=== PATIENT | female | born 1965 | race Caucasian/White ===

== ENCOUNTER 2021-03-23 11:55 | Emergency (ER) | payer OTHER, SELFPAY ==
[2021-03-23 11:58] VITALS: BP 163/92; PULSE 102; RESP 18; TEMP 36.5; O2SAT 97
--- NOTE | 2021-03-23 12:00 | DI.RAD_ITS ---
Exam(s) XR FOOT LT COMPLETE EXAM: XR FOOT LT COMPLETE CLINICAL HISTORY: left lateral foot pain, trauma. TECHNIQUE: 2D digital imaging was performed. COMPARISON: No exams were available for comparison FINDINGS: BONES: oblique fracture through the distal 5th metatarsal with mild displacement. Small comminuted fragment. Sesamoids adjacent to the head of the 5th metatarsal. No bony destructive lesion is seen. JOINTS: No dislocation present. SOFT TISSUE: Swelling adjacent to the 5th metatarsal and 5th toe. IMPRESSION: Fifth metatarsal fracture. DATA REPOSITORY: RADIATION DOSE DELIVERED:
--- NOTE | 2021-03-23 12:36 | DI.RAD_ITS ---
Exam(s) XR ANKLE LT COMPLETE EXAM: XR ANKLE LT COMPLETE CLINICAL HISTORY: left lateral ankle pain TECHNIQUE: 2D digital imaging was performed. COMPARISON: No exams were available for comparison FINDINGS: BONES: No acute fracture is present. No bony destructive lesion is seen. Heel spurs. Smoothly margin ated bony density beneath the lateral malleolus likely related to old trauma. JOINTS:The ankle mortise is normally aligned. SOFT TISSUE: Swelling beneath malleoli. IMPRESSION: Unremarkable radiographs of the left ankle. DATA REPOSITORY: RADIATION DOSE DELIVERED:
[2021-03-23 12:56] VITALS: BP 168/89; PULSE 85; RESP 14; TEMP 36.9; O2SAT 98
--- NOTE | 2021-03-23 13:07 | W.ED.GENAD ---
Discharge Plan Disposition Patient Disposition: HOME Condition: Stable Discharge Details Clinical Impression: Closed fracture of fifth metatarsal bone Primary Care Provider: Nathaniel Mckeon ED Provider: Deborah Parra Home Meds and New Rx's Prescriptions: No Action No Known Home Meds RF: 0 Discharge Instructions Instructions: Foot Fracture in Adults (ED) Additional Instructions: Please return immediately to the emergency department if you develop any new or worsening symptoms, if your condition does not improve as expected, or if you become otherwise concerned. It is extremely important that you call soon as possible to make an appointment to be seen in follow-up for this visit by your primary care doctor, and also by an orthopedic surgeon in 2 weeks. Stand Alone Forms: Work Release Referrals: Mt Wang MD [[facility] STAFF PHYSICIAN] - Nathaniel Mckeon MD [Primary Care Provider] - Discharge Data Discharge Date/Time-TO BE ENTERED AT DEPARTURE: 03/23/21 13:40 Medical Decision Making Sabiha Pineda is a 56 y/o woman who presented to emergency department with left lateral foot and left ankle pain after stepping off of a step stool onto the lateral aspect of her left foot 2 days ago. On exam patient is well and nontoxic-appearing. The left foot is neurovascularly intact. There is tenderness of the left lateral ankle and left lateral aspect of the foot. Exam/history at this time not consistent with calcaneus fracture, proximal tibia/fibula fracture, vascular pathology, acute emergent infectious process. Concern for ankle/foot fracture. Plan for x-rays. X-rays show fracture of the fifth metatarsal. I discussed patient presentation and results with Dr. Wang of orthopedic surgery, who recommends short boot, outpatient follow-up with orthopedics in 2 weeks, weightbearing as tolerated. Discussed results and plan with patient. I offered her crutches, she declined stating the pain is minimal when walking. I had a discussion with Patient regarding return to emergency department precautions, home care, and importance of outpatient follow-up. Pt verbalizes understanding of the plan and is amenable. Patient discharged to home with clear plan for outpatient follow-up. All questions were answered. Disposition decision was made weighing the risks and benefits of hospitalization versus outpatient treatment, the risk for further decompensation, and the patient's wishes. Medical Records Medical records reviewed: Yes I reviewed the patient's medical records. Imaging Data Radiologic Study: Attestation: I personally reviewed and interpreted this imaging study as follows: Radiologist's impression: EXAM: XR ANKLE LT COMPLETE CLINICAL HISTORY: left lateral ankle pain TECHNIQUE: 2D digital imaging was performed. COMPARISON: No exams were available for comparison FINDINGS: BONES: No acute fracture is present. No bony destructive lesion is seen. Heel spurs. Smoothly marginated bony density beneath the lateral malleolus likely related to old trauma. JOINTS:The ankle mortise is normally aligned. SOFT TISSUE: Swelling beneath malleoli. IMPRESSION: Unremarkable radiographs of the left ankle. EXAM: XR FOOT LT COMPLETE CLINICAL HISTORY: left lateral foot pain, trauma. TECHNIQUE: 2D digital imaging was performed. COMPARISON: No exams were available for comparison FINDINGS: BONES: oblique fracture through the distal 5th metatarsal with mild displacement. Small comminuted fragment. Sesamoids adjacent to the head of the 5th metatarsal. No bony destructive lesion is seen. JOINTS: No dislocation present. SOFT TISSUE: Swelling adjacent to the 5th metatarsal and 5th toe. IMPRESSION: Fifth metatarsal fracture. HPI General Mode of arrival: ambulatory. Date/Time Provider Initiated Documentation: 03/23/21 12:14. Limitations to Documentation: no limitations. Information obtained by: patient, RN notes reviewed and old records reviewed. HPI Narrative: Sabiha Pineda is a 56-year-old woman without reported history of medical problems presenting to emergency department with foot and ankle pain. Patient reports that 2 days ago she was standing on a step stool when she stepped off with her left foot and stepped onto the lateral aspect of her foot. Patient reports that she has pain along the lateral aspect of her foot and just under the left ankle since time of injury. She has been able to walk by weightbearing mostly on the medial aspect of the left foot. She denies any pain other than the left lateral ankle and left lateral foot. She denies fever, cough, shortness of breath, vomiting, diarrhea, numbness, weakness, rash, skin wound. Denies swelling other than to left foot. Related Data Home Medications Medication Instructions Recorded Confirmed Unknown [No Known Home Meds] 03/23/21 03/23/21 Allergies Allergy/AdvReac Type Severity Reaction Status Date / Time No Known Allergies Allergy Unverified 03/23/21 12:05 General Stated Complaint: Orthopedic SUSAN: 4 Review of Systems Narrative: Constitutional: denies fevers Eyes: denies eye pain ENT: denies ear pain, dental pain, sore throat Cardiovascular: denies chest pain Respiratory: denies SOB, cough GI: denies abdominal pain, vomiting, diarrhea : denies flank pain MSK: Reports left ankle and left foot pain, denies back pain, neck pain, other arthralgias, myalgias Skin: denies rash Neuro: denies headaches, numbness, weakness PFSH All Active Problems (Updated 03/23/21 @ 13:12 by Deborah Parra MD) Closed fracture of fifth metatarsal bone (Acute) Social History Smoking/Tobacco Use Status: Never Smoking risk assessment performed?: Yes Alcohol Intake: current Alcohol Intake frequency: a few times a week Drug use: Never Do you feel safe at home: Yes Do you feel safe in your relationship?: Yes Exam Narrative Exam Narrative: Constitutional: well and [id number], pleasant, conversing normally HENT: head atraumatic/normocephalic/normal inspection, mucous membranes moist Eyes: conjunctiva normal, sclera normal, pupils 3mm b/l Neck: no stridor, normal ROM, trachea midline Resp: normal work of breathing, speaking in full sentences Cardio: normal rate, normal rhythm Skin: warm, dry, normal color, no rash Neuro: alert, not altered, grossly non-focal, normal tone Ext: Left lateral ankle and lateral foot mildly tender to palpation, mild ecchymosis over lateral aspect of foot, no left proximal fibular tenderness to palpation, no tenderness to palpation of the tibia, DP pulses the left foot intact, left toes warm and well-perfused with brisk cap refill, able to range ankle normally with minimal pain, no edema of the left lower extremity Psych: normal mood, normal affect, normal behavior Course Vital Signs Vital signs: Vital Signs Temperature 36.5 C 03/23/21 11:58 Pulse 102 H 03/23/21 11:58 Respiratory Rate 18 03/23/21 11:58 Blood Pressure 163/92 H 03/23/21 11:58 Pulse Oximetry 97 03/23/21 11:58 Temperature 36.9 C 03/23/21 12:56 Temperature Source Oral 03/23/21 12:56 Pulse 85 03/23/21 12:56 Respiratory Rate 14 03/23/21 12:56 Respiratory Effort Non-Labored 03/23/21 12:04 Blood Pressure 168/89 H 03/23/21 12:56 Blood Pressure Position Sitting 03/23/21 11:58 Pulse Oximetry 98 03/23/21 12:56 Oxygen Delivery Method Room Air 03/23/21 12:56 Oxygen Flow Rate 0 03/23/21 12:56 Pain Level 1 03/23/21 12:56 PAWSS Have you Been Recently Intoxicated or Drunk Within the Last 30 days?: No Have you Ever Experienced Previous Episodes of Alcohol Withdrawal?: No Have you ever Experienced Withdrawal Seizures?: No Have you ever Experienced Delirium Tremens(DT)s?: No Have you ever undergone Alcohol Rehabilitation Treatment (i.e, inpt ot outpatient treatment programs)?: No Have you ever Experienced Blackouts?: No Have you ever Combined Alcohol with other Downers within the last 90 days?: No Have you ever Combined Alcohol with any other Substance of Abuse during the last 90 days?: No Positive Blood Alcohol level on Presentation? [PCS.BAL]: No Evidence of Increased Autonomic Activity (i.e. HR>120, tremor, sweating, agitation, nausea)?: No Result: 0
[2021-03-23 13:30] VITALS: BP 168/89; PULSE 85; RESP 14; TEMP 36.9; O2SAT 98
== END 2021-03-23 13:40 | disposition home or self-care (01) ==
PROVIDERS: Emergency Provider Student in an Organized Health Care Education/Training Program; PCP Internal Medicine
DX: S92.352A Displaced fracture of fifth metatarsal bone, left foot, initial encounter for closed fracture (principal); X50.1XXA Overexertion from prolonged static or awkward postures, initial encounter
CPT/HCPCS: 29515; 99284; 73610; 73630; 99283

== ENCOUNTER 2021-04-15 15:02 | Outpatient (CLI) | payer OTHER, SELFPAY ==
--- NOTE | 2021-04-15 13:15 | DI.RAD_ITS ---
Exam(s) XR FOOT LT COMPLETE EXAM: XR FOOT LT COMPLETE INDICATION: LEFT FIFTH METATARSAL FRACTURE. COMPARISON: CR XR FOOT LT COMPLETE from 03/23/2021 TECHNIQUE: 2D digital imaging was performed. FINDINGS: There has been no change in the alignment 5th metatarsal fracture. No new findings. DATA REPOSITORY: RADIATION DOSE DELIVERED:
== END 2021-04-15 15:03 | disposition home or self-care (01) ==
LOC: DIORS 15:02
PROVIDERS: PCP Internal Medicine; Referring Provider Internal Medicine; Visit Provider Student in an Organized Health Care Education/Training Program
DX: S92.352D Displaced fracture of fifth metatarsal bone, left foot, subsequent encounter for fracture with routine healing (principal); X58.XXXD Exposure to other specified factors, subsequent encounter
CPT/HCPCS: 73630

== ENCOUNTER 2021-05-27 15:24 | Outpatient (CLI) | payer OTHER, SELFPAY ==
--- NOTE | 2021-05-27 14:15 | DI.RAD_ITS ---
Exam(s) XR FOOT LT COMPLETE EXAM: XR FOOT LT COMPLETE CLINICAL HISTORY: left foot pain. TECHNIQUE: 2D digital imaging was performed. COMPARISON: Prior x-rays 04/15/2021 FINDINGS: 3 views Again noted is the oblique fracture in the mid-distal aspect of the 5th metatarsal bone, exhibiting n o further displacement. Mild healing but fracture line still evident. No additional new fractures e vident. IMPRESSION: DATA REPOSITORY: RADIATION DOSE DELIVERED:
== END 2021-05-27 15:25 | disposition home or self-care (01) ==
LOC: DIORS 15:24
PROVIDERS: PCP Internal Medicine; Referring Provider Internal Medicine; Visit Provider Student in an Organized Health Care Education/Training Program
DX: M79.672 Pain in left foot (principal); S92.352D Displaced fracture of fifth metatarsal bone, left foot, subsequent encounter for fracture with routine healing; X58.XXXS Exposure to other specified factors, sequela
CPT/HCPCS: 73630